=== PATIENT | female | born 1955 | race Caucasian/White ===

== ENCOUNTER 2017-08-25 11:30 | Outpatient (CLI) | payer BC ==
--- NOTE | 2017-08-25 13:34 | CT ---
BRAIN CT NONCONTRAST: Indication: Headache. FINDINGS: Ventricular system is within normal in size. There is no intracranial hemorrhage, mass effect, or mi dline shift. Imaged paranasal sinuses are clear. IMPRESSION: No acute intracranial abnormalities. If symptoms of headache persists, consider brain MRI for furthe r evaluation. POS: [facility]KA
== END 2017-08-25 11:31 | disposition home or self-care (01) ==
LOC: CT 11:30
PROVIDERS: ATTEND Internal Medicine Geriatric Medicine
DX: R51 Headache (principal)
CPT/HCPCS: 70450

== ENCOUNTER 2020-05-10 08:56 | Outpatient (CLI) | payer MEDICARE ==
--- NOTE | 2020-05-10 09:35 | ULT ---
EXAM: US Abdominal CLINICAL HISTORY: Abdominal pain and bloating, x1 year. COMPARISON: None. FINDINGS: Pancreas: The head and proximal pancreatic body have a normal echotexture. The remainder the pancrea s is obscured by bowel gas IVC: Visualized IVC has a normal caliber. Aorta: Visualized aorta has a normal caliber. Liver:Normal hepatic parenchymal echotexture. No hepatic masses or intrahepatic biliary dilatation. T he contour of the hepatic margin is maintained. Right hepatic lobe measures 15.2 cm. Gallbladder: No sonographic evidence of cholelithiasis, gallbladder wall thickening or pericholecysti c fluid. Meehan's sign:Negative CBD: 0.45 cm common bile duct diameter Portal vein: Patent. Appropriate directional flow. Right kidney: Normal cortical echotexture. No hydronephrosis. Right kidney measuring 3.8 x 3.6 x 9.5 cm in length. In the midpole, there is a anechoic focus in the pelvis measuring 1.8 x 1.2 x 2.4 cm. Parapelvic cyst is favored. Left kidney: Normal cortical echotexture. No hydronephrosis. Left kidney measuring 11.1 x 3.9 x 4.7 c m in length Spleen: Normal echotexture, measuring 12.5 cm in maximum dimension IMPRESSION: 1. No sonographic evidence of cholelithiasis or cholecystitis. 2. No evidence of hydronephrosis. Right parapelvic cyst.
== END 2020-05-10 08:57 | disposition home or self-care (01) ==
LOC: BICULT 08:56
PROVIDERS: ATTEND Internal Medicine Gastroenterology
DX: Z12.11 Encounter for screening for malignant neoplasm of colon (principal); R14.0 Abdominal distension (gaseous); D56.3 Thalassemia minor; K21.9 Gastro-esophageal reflux disease without esophagitis; N94.89 Other specified conditions associated with female genital organs and menstrual cycle
CPT/HCPCS: 93975

== ENCOUNTER 2020-05-10 09:40 | Outpatient (CLI) | payer MEDICARE ==
--- NOTE | 2020-05-13 16:19 | MMO ---
Bilateral MAMMO Bilat Screen [facility]. CLINICAL HISTORY: Patient is 64 years old and is seen for screening. The patient has no family history of breast cancer. The patient has no personal history of cancer. The patient has a history of left Cyst Aspiration more than 10 years ago - benign. VIEWS: The views performed were: bilateral craniocaudal with tomosynthesis and bilateral mediolateral oblique with tomosynthesis. FILMS COMPARED: The present examination has been compared to prior imaging studies performed at [facility] on 06/16/2017. This study has been interpreted with the assistance of computer-aided detection. MAMMOGRAM FINDINGS: There are scattered fibroglandular densities. Benign calcifications are noted. There are no suspicious masses, suspicious calcifications, or new areas of architectural distortion. IMPRESSION: THERE IS NO MAMMOGRAPHIC EVIDENCE OF MALIGNANCY. A ROUTINE FOLLOW-UP MAMMOGRAM IN 1 YEAR IS RECOMMENDED. THE RESULTS OF THIS EXAM WERE SENT TO THE PATIENT. ACR BI-RADS Category 2 - Benign finding MAMMOGRAPHY NOTE: 1. A negative mammogram report should not delay a biopsy if a dominant of clinically suspicious mass is present. 2. Approximately 10% to 15% of breast cancers are not detected by mammography. 3. Adenosis and dense breasts may obscure an underlying neoplasm. Reported by: KAMLESH CHAMBERLAIN MD Electonically Signed: [id number]
== END 2020-05-10 09:41 | disposition home or self-care (01) ==
LOC: BICMAMMO 09:40
DX: Z12.31 Encounter for screening mammogram for malignant neoplasm of breast (principal); Z98.890 Other specified postprocedural states
CPT/HCPCS: 77063; 77067

== ENCOUNTER 2020-11-04 13:50 | Outpatient (CLI) | payer MEDICARE ==
--- NOTE | 2020-11-04 15:06 | ULT ---
US Thyroid STANDARD History: Family history of throat cancer. Right neck lymph node. Comparison: None. Findings: Real-time grayscale and color evaluation of the thyroid was performed. The thyroid is small with decreased attenuation and internal fibrin bands. The right lobe measures 3. 1 x 1.2 x 1 cm and the left lobe measures 2.4 x 0.8 x 0.8 cm. Isthmus measures less than 2 mm in AP dimension. No adjacent adenopathy. Impression: 1. 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 2. No adenopathy along the thyroid.
== END 2020-11-04 13:51 | disposition home or self-care (01) ==
LOC: BICULT 13:50
PROVIDERS: ATTEND Internal Medicine Endocrinology, Diabetes & Metabolism
DX: E03.9 Hypothyroidism, unspecified (principal); Z80.8 Family history of malignant neoplasm of other organs or systems
CPT/HCPCS: 76536